=== PATIENT | female | born 1980 | race Caucasian/White ===

== ENCOUNTER 2016-10-25 22:40 | Emergency (ER) | payer OTHER ==
--- NOTE | ~2016-10-25 | CR150 ---
[facility]. [facility] A Service of [facility] RADIOLOGY TEXT RESULTS PATIENT: ISAURA BERNSTEIN LOCATION: SED : 76 UNIT #: [id number] AGE: [address]: Joann Givens SEX: F ORDER DR: [id number] [address] [address] [id number] E MR#: [id number] Acc #: [id number] NAME: ISAURA BERNSTEIN : 1980 SEX: F STUDY DATE/TIME: 10/25/2016 22:47 UNIT: SED ROOM: STUDY DESCRIPTION: CR Hip Min 2 Views Lt Attending Physician: Joann Givens Pa-C Ordering Physician: Rafa Perez M.D. MEDICAL IMAGING REPORT This report is preliminary unless electronic signature is present. EXAM Left hip, 2 views INDICATIONS Left hip pain for 3 days. Comparison with 12/15/2005. FINDINGS There has been a prior plate and screw fixation of the acetabulum and there has been a prior left hip arthroplasty. Hardware intact. Alignment normal. No evidence of any fracture. IMPRESSION Postop changes of the left hip. No acute findings. Dictated by... Cholo Turner M.D. THIS IS AN ELECTRONICALLY VERIFIED REPORT Cholo Turner M.D. at 10/26/2016 10:07 AM GEORGI/mavis TD: 10/26/2016 02:45 JOB #: [id number] MEDICAL IMAGING REPORT Page 1 of 1
[~2016-10-25 22:40] MED LIST: ALBUTEROL17 GM; EC-NAPROSYN500 MG; LORTAB 10/500 T1 TAB; NO MEDICATIONS; OXYCONTIN; SOMA
== END 2016-10-25 23:23 | disposition home or self-care (01) ==
LOC: SED 22:40
DX: M25.552 Pain in left hip (principal); F17.200 Nicotine dependence, unspecified, uncomplicated; Z88.0 Allergy status to penicillin; Z88.5 Allergy status to narcotic agent
CPT/HCPCS: 73502; 84703; 96372; 99283; J1885

== ENCOUNTER 2016-11-11 23:11 | Emergency (ER) | payer OTHER ==
--- NOTE | ~2016-11-11 | EKG ---
PATIENT: ISAURA BERNSTEIN UNIT #: [id number] Ventricular Rate: 72 BPM Atrial Rate: 72 BPM P-R Interval: 118 ms QRS Duration: 96 ms Q-T Interval: 368 ms QTC Calculation(Bezet): 402 ms P Rockledge: 55 degrees Calculated R Rockledge: -27 degrees Calculated T Rockledge: 68 degrees Diagnosis Line: Normal sinus rhythm with sinus arrhythmia Diagnosis Line: Normal ECG Diagnosis Line: No previous ECGs available Diagnosis Line: Confirmed by SWATI DIAZ MD ([id number]) on 11/13/2016 Diagnosis Line: 4:04:33 PM INTERPRETING MD: JOE PAYTON
--- NOTE | ~2016-11-11 | CR72 ---
[facility] A Service of [facility] RADIOLOGY TEXT RESULTS PATIENT: ISAURA BERNSTEIN LOCATION: [facility] : [birth year] UNIT #: [id number] AGE: [address]: Maricruz Mason MD SEX: F ORDER DR: [id number] [facility] [address] [facility] [place], [place] [address] [id number] E MR#: [id number] Acc #: [id number] NAME: ISAURA BERNSTEIN : 1980 SEX: F STUDY DATE/TIME: 11/11/2016 20:12 UNIT: [facility] ROOM: STUDY DESCRIPTION: CR Chest Single View Portable Attending Physician: Maricruz Mason M.D. Referring Physician: Self Referral-Refer Use Only Ordering Physician: Maricruz Mason M.D. Primary Care Physician: Primary Care Physician No MEDICAL IMAGING REPORT This report is preliminary unless electronic signature is present EXAM Portable chest. HISTORY Chest pain for two days. COMPARISON None. FINDINGS Portable view of the chest was obtained. Heart size and vascularity are normal. Lungs are clear. Bones are unremarkable. IMPRESSION No active disease. Dictated by... Vahe Crews M.D. THIS IS AN ELECTRONICALLY VERIFIED REPORT Vahe Crews M.D. at 11/12/2016 2:00 PM Lis TD: 11/12/2016 09:11 JOB #: [id number] MEDICAL IMAGING REPORT Page 1 of 1 COPY
[2016-11-11 19:30] LABS: URINE SOURCE CLEAN CATCH
[2016-11-11 19:34] LABS: URINE APPEARANCE CLEAR; URINE BILIRUBIN NEG (NEG); URINE BLOOD NEG (NEG); URINE COLOR YELLOW; URINE GLUCOSE NEG (NEG); URINE KETONE 3+ (NEG); URINE LEUKOCYTE ESTERASE NEG (NEG); URINE NITRATE NEG (NEG); URINE PH 5.5 (5-8); URINE PROTEIN NEG (NEG); URINE SPECIFIC GRAVITY 1.027 (1.003-1.035)
[2016-11-11 19:39] LABS: CULTURE INDICATED? NO
[2016-11-11 20:04] LABS: BASOPHIL% 0.5 % (0-2.5); EOSINOPHIL% 0.6 % (0.0-7.0); HEMATOCRIT 42.8 % (35.0-45.0); LYMPHOCYTE# 1.4 X10e3 (1.0-3.5); LYMPHOCYTE% 17.2 % (17.0-45.0); MEAN CELL VOLUME 90.7 FL (83-96); MEAN CORPUSCULAR HEMOGLOBIN 29.6 PG (28-34); MEAN CORPUSCULAR HGB CONC 32.6 g/dL (30-36); MEAN PLATELET VOLUME 10.6 FL (6.5-11.5); MONOCYTE# 0.5 X10e3 (0-1.0); NEUTROPHIL# 6.4 X10e3 (1.5-7.1); NEUTROPHIL% 75.7 % (40-75); PLATELET COUNT 315 X10e3 (140-420); RED BLOOD COUNT 4.72 X10e (3.90-5.30); RED CELL DISTRIBUTION WIDTH 13.9 % (11.0-15.5); WHITE BLOOD COUNT 8.4 X10e3 (4.0-10.5)
[2016-11-11 20:07] LABS: DIFF IND NO
[2016-11-11 20:15] LABS: POC - CKMB <1.0 ng/mL (0.0-7.9); POC - TROPONIN <0.05 ng/mL (<=0.05)
[2016-11-11 20:37] LABS: ALBUMIN SERUM 4.9 g/dL (3.5-5.0); BILIRUBIN, DIRECT 0.1 mg/dL (0.0-0.2); BILIRUBIN,INDIRECT 0.6 mg/dL (0.0-0.9); BILIRUBIN,TOTAL 0.7 mg/dL (0.2-2.0); BUN/CREATININE RATIO 18.33; CALCIUM SERUM 9.4 mg/dL (8.4-10.2); CREATININE SERUM 0.6 mg/dL (0.6-1.4); GLOM FILT RATE Estimated 115.6 mL/min (>60); POTASSIUM 3.7 mmol/L (3.5-5.1); PROTEIN TOTAL SERUM 7.7 g/dL (6.0-8.3)
[2016-11-11 20:56] LABS: AMPHETAMINE NEG (NEG); BARBITURATES NEG (NEG); BENZODIAZEPINES NEG (NEG); COCAINE NEG (NEG); MARIJUANA NEG (NEG); OPIATES NEG (NEG); TRICYCLIC ANTIDEPRESSANTS NEG (NEG); U METHADONE NEG (NEG)
== END 2016-11-11 23:15 | disposition home or self-care (01) ==
LOC: CED 23:11
PROVIDERS: Emergency Medicine
DX: R07.9 Chest pain, unspecified (principal); Z88.0 Allergy status to penicillin; Z88.5 Allergy status to narcotic agent
CPT/HCPCS: 36415; 71010; 80048; 80076; 80307; 81003; 82150; 82553; 83690; 84484; 84703; 85025; 85379; 93005; 99284; J1885

== ENCOUNTER 2016-12-14 21:00 | Emergency (ER) | payer SELFPAY ==
--- NOTE | ~2016-12-14 | CR141 ---
[facility] A Service [facility] RADIOLOGY TEXT RESULTS PATIENT: ISAURA BERNSTEIN LOCATION: SED : 76 UNIT #: [id number] AGE: [address]: JAVIER ALMENDAREZ SEX: F ORDER DR: [id number] [place] [address] [id number] E MR#: [id number] Acc #: [id number] NAME: ISAURA BERNSTEIN : 1980 SEX: F STUDY DATE/TIME: 12/14/2016 21:41 UNIT: SED ROOM: STUDY DESCRIPTION: CR Hand Min 3 Views Lt Attending Physician: Javier Almendarez Ordering Physician: Javier Almendarez Primary Care Physician: Primary Care Physician No MEDICAL IMAGING REPORT This report is preliminary unless electronic signature is present. EXAM Left hand series INDICATION Left hand pain, swelling, bruising, laceration to the second and third digits after an injury today. PROCEDURE 3 views of the left hand. COMPARISON None. FINDINGS No acute fracture or dislocation. IMPRESSION No acute findings. Dictated by... Maikol Leach M.D. THIS IS AN ELECTRONICALLY VERIFIED REPORT Maikol Leach M.D. at 12/15/2016 2:27 PM SERGIOD/sreedhar TD: 12/14/2016 23:19 JOB #: [id number] MEDICAL IMAGING REPORT [facility]. [facility] A Service of [facility] RADIOLOGY TEXT RESULTS PATIENT: ISAURA BERNSTEIN LOCATION: SED : 76 UNIT #: [id number] AGE: [address]: JAVIER ALMENDAREZ SEX: F ORDER DR: Page 1 of 1
[2016-12-14] MEDS ORDERED: NO MEDICATIONS (21:21)
== END 2016-12-14 22:24 | disposition home or self-care (01) ==
LOC: SED 21:00
DX: S60.222A Contusion of left hand, initial encounter (principal); F17.210 Nicotine dependence, cigarettes, uncomplicated; J44.9 Chronic obstructive pulmonary disease, unspecified; Z88.0 Allergy status to penicillin; Z88.1 Allergy status to other antibiotic agents; X58.XXXA Exposure to other specified factors, initial encounter; Y92.009 Unspecified place in unspecified non-institutional (private) residence as the place of occurrence of the external cause
CPT/HCPCS: 29280; 73130; 99283

== ENCOUNTER 2016-12-29 05:04 | Emergency (ER) | payer SELFPAY | END 2016-12-29 05:50 | disposition home or self-care (01) | LOC: SED 05:04 | DX: T14.8 Other injury of unspecified body region (principal); Z98.51 Tubal ligation status; Z88.0 Allergy status to penicillin; Z88.5 Allergy status to narcotic agent; W57.XXXA Bitten or stung by nonvenomous insect and other nonvenomous arthropods, initial encounter; Y92.821 Forest as the place of occurrence of the external cause | CPT/HCPCS: 99282 ==